=== PATIENT | male | born 1995 | race Caucasian/White ===

== ENCOUNTER 2018-09-20 16:09 | Outpatient (CLI) | payer OTHER ==
[2018-09-20 16:59] LABS: BASOPHILS % 2.6 % (0.0-1.5); NEUTROPHILS # 1.2 # k/uL (1.4-7.7)
[2018-09-20 17:13] LABS: eGFR (Non-African) > 60
[2018-09-20 17:17] LABS: HDL 24 mg/dL (>40)
== END 2018-09-20 16:11 ==
LOC: LAB 16:09
PROVIDERS: ATTEND Family Medicine
DX: A77.40 Ehrlichiosis, unspecified (principal)
CPT/HCPCS: 36415; 80053; 80061; 85025; 86618; 86666; 86757